=== PATIENT | male | born 1995 | race Caucasian/White ===

== ENCOUNTER 2021-04-10 15:51 | Outpatient (CLI) | payer BC ==
--- NOTE | 2021-04-11 10:38 | XRAY Report ---
PROCEDURE: Wrist 3 View RT INDICATIONS: R WRIST PX TECHNIQUE: 3 views of the wrist were acquired. COMPARISON: None. FINDINGS: Bones: No fractures or dislocations. No suspicious bony lesions. Mild radiocarpal joint degenerati on. Soft tissues: No suspicious soft tissue calcifications. IMPRESSION: Mild degenerative joint disease. Reviewed by: James Freitas MD on 04/11/2021 10:37 AM [facility] Approved by: James Freitas MD on 04/11/2021 10:37 AM [facility] Station ID: [id number]
== END 2021-04-10 23:59 | disposition home or self-care (01) ==
LOC: DI.N 15:51
PROVIDERS: ATTEND Family Medicine
DX: M19.031 Primary osteoarthritis, right wrist (principal)

== ENCOUNTER 2021-04-23 09:00 | Outpatient (CLI) | payer BC ==
--- NOTE | 2021-04-23 11:59 | XRAY Report ---
PROCEDURE: Wrist 3 View RT INDICATIONS: RIGHT WRIST SPRAIN TECHNIQUE: 3 views of the wrist were acquired. COMPARISON: 04/10/2021 FINDINGS: Bones: No fractures or dislocations. No suspicious bony lesions. Mild radiocarpal joint degenerativ e change. Scaphoid view: Scaphoid intact Soft tissues: No suspicious soft tissue calcifications. IMPRESSION: No evidence acute bony abnormality of the right wrist. If clinical suspicion and/or symptoms persist, further assessment with repeat plain films or advanced imaging (e.g., CT, MRI, or bone scan) may be helpful for further assessment. Reviewed by: Cyril Harden MD on 04/23/2021 11:58 AM PST Approved by: Cyril Harden MD on 04/23/2021 11:58 AM PST Station ID: [id number]
== END 2021-04-23 23:59 | disposition home or self-care (01) ==
LOC: DI.N 09:00
PROVIDERS: ATTEND Physician Assistant
DX: S63.591A Other specified sprain of right wrist, initial encounter (principal)

== ENCOUNTER 2022-07-26 09:23 | Outpatient (CLI) | payer BC ==
--- NOTE | 2022-07-26 15:19 | XRAY Report ---
PROCEDURE: Wrist 3 View LT INDICATIONS: OTHER SPECIFIED SPRAIN OF LEFT WRIST, INITIAL ENC. Pain. TECHNIQUE: 3 views of the wrist were acquired. COMPARISON: None FINDINGS: Bones: No fractures or dislocations. No suspicious bony lesions. Soft tissues: No suspicious soft tissue calcifications. IMPRESSION: No acute osseous abnormality. If symptoms persist, follow-up radiographs and/or CT or MRI may be help ful for further evaluation. Reviewed by: Margarito Brenner MD on 07/26/2022 3:18 PM PDT Approved by: Margarito Brenner MD on 07/26/2022 3:18 PM PDT Station ID: [id number]
== END 2022-07-26 09:24 | disposition home or self-care (01) ==
LOC: DI 09:23
PROVIDERS: ATTEND Physician Assistant Medical
DX: S63.592A Other specified sprain of left wrist, initial encounter (principal)